=== PATIENT | male | born 1960 | race Caucasian/White ===

== ENCOUNTER → 2020-01-28 10:23 | Outpatient (CLI) | payer OTHER, SELFPAY ==
--- NOTE | ~2020-01-28 | US_ITS ---
EXAMINATION: US soft tissue abdomen, US soft tissue groin RT, US soft tissue groin LT DATE: 01/28/2020 11:15 INDICATION: Lipoma of intra-abdominal organ and bilateral inguinal hernias with palpable abnormalitie s in the left epigastric region and bilateral inguinal regions. TECHNIQUE: Multiple grayscale and Doppler ultrasound images of the region of concern were obtained in cluding along the anterior abdominal wall of the left upper quadrant and at the bilateral inguinal re gions. COMPARISON: Chest CT dated 07/21/2013 FINDINGS: The palpable abnormality of concern at the mid left epigastric region appears to correspond to an ant eriorly curved bifurcated xiphoid process which could be more clearly appreciated on chest CT dated . No other abnormal masses or fluid collections identified. There is a nonspecific 5.2 x 2.9 x 3.6 cm relatively well-defined mass corresponding to the palpable abnormality at the left inguinal region. The deep superficial margin of the mass is poorly visualized due to shadowing. The mass is hypoechoic peripherally with heterogeneous isoechoic central region. T here are a few typical appearing small left inguinal lymph nodes the largest measuring 6 mm in marjorie l short axis diameter and which are comprised primarily of central fatty aristides with thin peripheral hy poechoic cortices. Relatively symmetric pattern of normal right inguinal lymph nodes the largest measuring 8 mm in maxim al short axis diameter and similarly predominantly comprised of central fatty aristides within or peripher al hypoechoic cortices. There is an approximately 1.6 x 0.7 x 1.2 cm relatively homogeneous mass situ ated in and isoechoic to the surrounding subcutaneous fat in the right inguinal region. No evident ri ght-sided inguinal hernia. IMPRESSION: 1. Nonspecific 5.2 x 2.9 x 3.6 cm left inguinal mass with poorly defined deep cephalad margin. Differ ential would include either enlarged lymph node either due to lymphoma, metastases or less likely anaya ctive, primary neoplasm either benign or malignant or potentially a fat-containing inguinal hernia. W ould recommend further evaluation with either pre and postcontrast MRI or postcontrast CT of the pelv is and percutaneous biopsy if subsequently indicated. 2. 1.6 x 0.7 x 1.2 cm mass in the right inguinal region which while nonspecific as appearance most leong ggestive of a lipoma. This could be more definitively determined at the same time with either CT or M RI. 3. No abnormal masses or fluid collections in the left epigastric region with the palpable abnormalit y appearing to correspond to an anterior curved bifurcated xiphoid process. Reviewed, dictated and finalized at location B. IMPRESSION: 1. Nonspecific 5.2 x 2.9 x 3.6 cm left inguinal mass with poorly defined deep c ephalad margin. Differential would include either enlarged lymph node either du e to lymphoma, metastases or less likely reactive, primary neoplasm either ross gn or malignant or potentially a fat-containing inguinal hernia. Would recommen d further evaluation with either pre and postcontrast MRI or postcontrast CT of the pelvis and percutaneous biopsy if subsequently indicated. 2. 1.6 x 0.7 x 1.2 cm mass in the right inguinal region which while nonspecific as appearance most suggestive of a lipoma. This could be more definitively det ermined at the same time with either CT or MRI. 3. No abnormal masses or fluid collections in the left epigastric region with t he palpable abnormality appearing to correspond to an anterior curved bifurcate d xiphoid process.
== END ==
PROVIDERS: PCP Family Medicine; Visit Provider Nurse Practitioner
DX: D17.5 Benign lipomatous neoplasm of intra-abdominal organs (principal); K40.20 Bilateral inguinal hernia, without obstruction or gangrene, not specified as recurrent
CPT/HCPCS: 76705; 76882

== ENCOUNTER → 2020-02-10 12:15 | Outpatient (CLI) | payer OTHER, SELFPAY ==
--- NOTE | ~2020-02-10 | MR_ITS ---
EXAMINATION: MR pelvis wo/w con DATE: 02/10/2020 13:17 INDICATION: Intermittent abdominal/pelvic swelling, mass/lump. TECHNIQUE: Magnetic resonance imaging (MRI) of the pelvis was performed without and with 15 mL Multih ance intravenous contrast. Fullfield sequences of the pelvis included axial and coronal T2-weighted S S FSE, coronal 2D FIESTA, axial T1-weighted FSPGR, axial dual-echo T1-weighted FSPGR and axial T1 cristopher ghted LAVA. Small field of view sequences included axial, sagittal and coronal T2-weighted FSE cente red on the uterus and adnexa. Postcontrast sequences included a time course axial T1-weighted LAVA w ith fullfield of view of the pelvis. COMPARISON: None. FINDINGS: 5.0 x 3.6 x 3.4 cm heterogeneously enhancing soft tissue mass without a fat or fluid component locate d along the left spermatic cord at the distal margin of the inguinal canal. No evident inguinal herni a. Scrotum is normal with normal symmetric bilateral testes. The bladder, prostate and visualized por tions of the bowels including the appendix are unremarkable. No pathologically enlarged pelvic or ing uinal lymphadenopathy. The visualized bones and musculature in the pelvis and proximal thighs are nor mal. IMPRESSION: 1. 5.0 x 3.6 x 3.4 cm extratesticular mass along the left spermatic cord which is concerning for neop lasm which could be either benign such as leiomyofibroma and pseudotumor or malignant such as leiomyo sarcoma or malignant fibrocystic cytoma. Recommend urologic consultation. Reviewed, dictated and finalized at location B. IMPRESSION: 1. 5.0 x 3.6 x 3.4 cm extratesticular mass along the left spermatic cord which is concerning for neoplasm which could be either benign such as leiomyofibroma and pseudotumor or malignant such as leiomyosarcoma or malignant fibrocystic cy partha. Recommend urologic consultation.
[2020-02-10 12:42] LABS: Estimated Glomerular Filt Rate > 60
== END ==
PROVIDERS: PCP Family Medicine; Visit Provider Nurse Practitioner
DX: R19.09 Other intra-abdominal and pelvic swelling, mass and lump (principal)
CPT/HCPCS: 72197; A9577

== ENCOUNTER → 2021-02-03 12:02 | Outpatient (CLI) | payer OTHER, SELFPAY ==
--- NOTE | ~2021-02-03 | MR_ITS ---
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 Fullfield sequences of the pelvis included axial and coronal T2-weighted S S FSE, coronal 2D FIESTA, axial T1-weighted FSPGR, axial dual-echo T1-weighted FSPGR and axial T1 cristopher ghted LAVA. Small field of view sequences included axial, sagittal and coronal T2-weighted FSE cente red on the deep pelvis. Postcontrast sequences included a time course axial T1-weighted LAVA with fu llfield of view of the pelvis. COMPARISON: 02/10/2020 FINDINGS: Interval resection of the previously noted mass along the left spermatic cord at the inguinal canal w ith subtle scarring in the subcutaneous tissues overlying the left inguinal canal. No evident residua l or recurrent mass. Bilateral testes are unremarkable. No significant change in several normal sized bilateral inguinal lymph nodes with normal central fatty aristides. No pathologically enlarged pelvic or inguinal lymphadenopathy. No interval change in a 9 x 6.8 x 1.7 cm homogeneous low T1 hyperintense in tramuscular lipoma situated between the layers musculature of the right anterior pelvic wall. Bladder and prostate are unremarkable. Visualized portion of the bowels are unremarkable. No ascites in the pelvis. Mild L5-S1 disc bulge. Normal bone marrow signal throughout. IMPRESSION: 1. Interval resection of the previous noted enhancing mass along the left spermatic cord. Correlate w ith pathology of the resected tissue. No evident residual, recurrent or metastatic disease. 2. No significant change in a 9 x 6.8 x 1.7 cm intramuscular lipoma within the anterior right pelvic wall musculature. Reviewed, dictated and finalized at location A. IMPRESSION: 1. Interval resection of the previous noted enhancing mass along the left sperm atic cord. Correlate with pathology of the resected tissue. No evident residual , recurrent or metastatic disease. 2. No significant change in a 9 x 6.8 x 1.7 cm intramuscular lipoma within the anterior right pelvic wall musculature.
[2021-02-03 12:45] LABS: Estimated Glomerular Filt Rate > 60
== END ==
PROVIDERS: PCP Family Medicine; Visit Provider Urology
DX: D40.8 Neoplasm of uncertain behavior of other specified male genital organs (principal)
CPT/HCPCS: 72197; A9577

== ENCOUNTER → 2021-02-20 14:47 | Outpatient (CLI) | payer OTHER, SELFPAY ==
--- NOTE | ~2021-02-20 | XR_ITS ---
EXAMINATION: XR lumbar spine 2-3V DATE: 02/20/2021 15:20 INDICATION: Low back pain, strain of the muscle TECHNIQUE: Anteroposterior and lateral views of the lumbar spine, and cone-down lateral view of the l umbosacral junction were obtained. COMPARISON: 03/17/2019 FINDINGS: There is approximately 15% loss of anterior vertebral body height at L3. The vertebral body heights are otherwise maintained. Bone alignment is normal. There is chronic mild loss of interverte bral disc space height at L5-S1. Small degenerative osteophytes project from the anterior endplates o f multiple vertebral bodies. IMPRESSION: 1. Mild loss of anterior vertebral body height at L3, consistent with age indeterminate compression f racture. 2. Mild lumbar spondylosis. Reviewed, dictated and finalized at location B. [employer] IMPRESSION: 1. Mild loss of anterior vertebral body height at L3, consistent with age indet erminate compression fracture. 2. Mild lumbar spondylosis.
== END ==
PROVIDERS: PCP Family Medicine; Visit Provider Nurse Practitioner Family
DX: S39.012A Strain of muscle, fascia and tendon of lower back, initial encounter (principal); X58.XXXA Exposure to other specified factors, initial encounter; M47.896 Other spondylosis, lumbar region
CPT/HCPCS: 72100

== ENCOUNTER → 2021-07-12 15:47 | Outpatient (CLI) | payer OTHER, SELFPAY ==
--- NOTE | ~2021-07-12 | CT_ITS ---
EXAMINATION: CT lumbar spine wo con DATE: 07/12/2021 16:12 INDICATION: Right-sided muscle strain. TECHNIQUE: Computed tomography (CT) of the lumbar spine was performed without intravenous contrast. A utomated exposure control and iterative reconstruction technique were employed. The dose-length produ ct was 767.86 mGy-cm. COMPARISON: Lumbar spine radiographs 02/20/2021 FINDINGS: There is 3 mm retrolisthesis of L2 on L3. There is mild chronic anterior wedging of T12 and L1 vertebral bodies. There is a chronic compression fracture of L3 with 1/5 loss of height. There is mildly decreased disc height at L1-L2 and L2-L3 and moderately decreased disc at L5-S1 with endplate remodeling. The following disc levels are specifically discussed: L1-L2: The disc is bulging. There is mild right and moderate left facet joint osteoarthritis. There i s mild right neural foraminal stenosis. There is mild central canal stenosis. L2-L3: The disc is bulging. There is mild bilateral facet joint osteoarthritis. There is mild bilater al neural foraminal stenosis. There is mild central canal stenosis. L3-L4: The disc is bulging. There is mild bilateral facet joint osteoarthritis. There is mild bilater al neural foraminal stenosis. There is mild central canal stenosis. L4-L5: The disc is bulging. There is moderate right and mild left facet joint osteoarthritis. There i s mild right and moderate left neural foraminal stenosis. There is mild central canal stenosis. L5-S1: The disc is bulging. There is severe bilateral facet joint osteoarthritis. There is mild bilat eral neural foraminal stenosis. There is mild central canal stenosis. IMPRESSION: 1. Moderate lumbar spondylosis. Reviewed, dictated and finalized at location A.
== END ==
PROVIDERS: PCP Family Medicine; Visit Provider Nurse Practitioner Adult Health
DX: M47.896 Other spondylosis, lumbar region (principal)
CPT/HCPCS: 72131